=== PATIENT | male | born 1960 | race African-American/Black ===

== ENCOUNTER 2023-08-13 11:22 | Emergency (ER) | payer MEDICAID ==
[~2023-08-13] VITALS: Ht 188 cm; Wt 75.0 kg
[2023-08-13 11:31] VITALS: TEMP 97.6
[2023-08-13] MEDS ORDERED: IBUPROFEN 600 MG TABLET PO ONE (13:15)
[2023-08-13 13:40] VITALS: BP 116/82; PULSE 88; RESP 16
== END 2023-08-13 14:00 | disposition home or self-care (01) ==
LOC: EMS 11:27
DX: R25.2 Cramp and spasm (principal)
CPT/HCPCS: 99282; Z7502; Z7610